=== PATIENT | female | born 1995 | race Caucasian/White ===

== ENCOUNTER 2023-12-10 17:18 | Emergency (ER) | payer OTHER, MEDICAID ==
[~2023-12-10] VITALS: Ht 165.1 cm; Wt 90.0 kg
[2023-12-10 17:20] VITALS: O2SAT 100
[2023-12-10 20:14] LABS: HEMOGLOBIN. 13.6 g/dL (12.0-16.0); MEAN CORPUSCULAR HEMOGLOBIN 29.8 pg (28.0-32.0); MEAN CORPUSCULAR HGB CONC 33.3 g/dL (31.0-37.0); MEAN CORPUSCULAR VOLUME 89.7 fL (81.0-99.0); MEAN PLATELET VOLUME 8.3 fl (7.4-10.4); PLATELET 290 x1000/uL (130-400); RED BLOOD CELL COUNT 4.57 mill/uL (4.2-5.4); RED CELL DISTRIBUTION WIDTH 13.6 % (11.6-14.6); WHITE BLOOD COUNT 14.8 x1000/uL (4.5-11.0)
[2023-12-10 20:15] LABS: DIFFERENTIAL COMMENT 1
[2023-12-10 20:19] LABS: CLARITY URINE TURBID (CLEAR); COLOR URINE DARK YELLOW (YELLOW); GLUCOSE URINE NEGATIVE (NEGATIVE); KETONES URINE 2+ (NEGATIVE); LEUKOCYTE ESTERASE URINE TRACE (NEGATIVE); NITRITE URINE NEGATIVE (NEGATIVE); OCCULT BLOOD URINE NEGATIVE (NEGATIVE); PROTEIN URINE NEGATIVE (NEGATIVE); SPECIFIC GRAVITY URINE 1.024 (1.005-1.030)
[2023-12-10 20:25] LABS: HCG SCREEN NEGATIVE
[2023-12-10 20:27] LABS: CARBON DIOXIDE 25 mEq/L (21-32); CHLORIDE 109 mEq/L (98-107); POTASSIUM 4.2 mEq/L (3.5-5.1); SODIUM 140 mEq/L (136-145)
[2023-12-10 20:28] LABS: CALCIUM 9.5 mg/dL (8.7-10.4)
[2023-12-10 20:32] LABS: CREATININE 0.7 mg/dL (0.6-1.0)
[2023-12-10 20:33] LABS: GLUCOSE 115 mg/dL (70-105); UREA NITROGEN BLOOD 11 mg/dL (9-23)
[2023-12-10 20:34] LABS: ALANINE AMINOTRANSFERASE 102 IU/L (10-49)
[2023-12-10 20:35] LABS: BACTERIA URINE 2+; SQUAMOUS EPITHELIAL CELL URINE 2+ /lpf (RARE/1+)
[2023-12-10 20:35] LABS: ALBUMIN 4.8 g/dL (3.2-4.8); ASPARTATE AMINOTRANSFERASE 226 IU/L (<34); BILIRUBIN DIRECT 0.9 mg/dL (<=3.0); BILIRUBIN TOTAL 1.5 mg/dL (0.1-1.0); PROTEIN TOTAL 7.9 g/dL (6.0-8.3)
[2023-12-10 20:39] LABS: *AMPHETAMINES SCREEN URINE NEGATIVE (NEGATIVE); *BARBITURATES SCREEN URINE NEGATIVE (NEGATIVE); *BENZODIAZEPINES SCREEN URINE NEGATIVE (NEGATIVE); *COCAINE SCREEN URINE NEGATIVE (NEGATIVE); CANNABINOID URINE SCREEN NEGATIVE (NEGATIVE); ECSTASY MDMA SCREEN URINE NEGATIVE (NEGATIVE); METHADONE URINE SCREEN NEGATIVE (NEGATIVE); OPIATES URINE SCREEN NEGATIVE (NEGATIVE); PHENCYCLIDINE URINE SCREEN NEGATIVE (NEGATIVE)
[2023-12-10] MEDS ORDERED: HYDR-4001 MT (20:45)
[2023-12-10 20:47] LABS: PLATELET ESTIMATE NORMAL
[2023-12-10] MEDS: HYDROCODONE/ACETAMINOPHEN 5/325MG TABLET PO STA (21:05)
[2023-12-10 21:10] VITALS: BP 104/51; PULSE 70; RESP 20; TEMP 98
== END 2023-12-10 21:13 | disposition home or self-care (01) ==
LOC: ER 17:18
DX: K80.50 Calculus of bile duct without cholangitis or cholecystitis without obstruction (principal); E11.9 Type 2 diabetes mellitus without complications
CPT/HCPCS: 36415; 76700; 80048; 80076; 80305; 81003; 84703; 85025; 99284